=== PATIENT | female | born 1995 | race Two or more races ===

== ENCOUNTER 2018-02-20 12:26 | Outpatient (CLI) | payer OTHER | END 2018-02-20 15:40 | disposition home or self-care (01) | LOC: OBT 12:26 → L-D 12:27 → OBT 15:40 | DX: O62.9 Abnormality of forces of labor, unspecified (principal); Z3A.38 38 weeks gestation of pregnancy | CPT/HCPCS: 76815; 76818 ==

== ENCOUNTER 2018-03-05 17:28 | Inpatient (IN) | payer OTHER ==
[2018-03-05] MEDS ORDERED: LACTATED RINGER'S 1,000 ML IV (21:38)
[2018-03-05] MEDS ORDERED: BUTORPHANOL 1 MG INJ IV (22:00)
[2018-03-05] MEDS ORDERED: MISOPROSTOL 200 MCG TAB PR (22:00)
[2018-03-05] MEDS ORDERED: BUTORPHANOL 2 MG INJ IV (22:00)
[2018-03-05] MEDS ORDERED: METHYLERGONOVINE 0.2 MG INJ IM (22:00)
[2018-03-05] MEDS ORDERED: CARBOPROST 250 MCG INJ IM (22:00)
[2018-03-05] MEDS ORDERED: OXYTOCIN 30 UNITS/LR 500 ML IV (22:00)
[2018-03-05] MEDS: LACTATED RINGER'S 1,000 ML IV (22:30)
[2018-03-05] MEDS: AMPICILLIN 2 GM/NS (PMX) 100 ML IV (22:30)
[2018-03-05 22:32] LABS: ADD MAN DIFF? NO
[2018-03-05 22:39] LABS: WHITE BLOOD COUNT 7.8 10^3/ul (4.8-10.8)
[2018-03-05 22:39] LABS: BASOPHILS % 0.5 % (0.0-2.0); EOSINOPHILS # 0.1 10^3/ul (0.0-0.5); EOSINOPHILS % 0.8 % (0.0-7.0); HEMATOCRIT 41.5 % (37.0-47.0); HEMOGLOBIN 14.3 g/dl (12.0-16.0); LYMPHOCYTES # 2.1 10^3/ul (0.8-2.9); LYMPHOCYTES % 26.5 % (15.0-51.0); MEAN CORPUSCULAR HGB CONC 34.5 g/dl (32.0-37.0); MEAN CORPUSCULAR VOLUME 89.8 fl (82.0-101.0); MEAN PLATELET VOLUME 10.8 fl (7.4-10.4); MONOCYTE # 0.5 10^3/ul (0.3-0.9); MONOCYTES % 6.8 % (0.0-11.0); NEUTROPHIL # 4.9 10^3/ul (1.6-7.5); NEUTROPHILS % 63.7 % (39.0-77.0); PLATELET COUNT 151 10^3/UL (140-415); RED BLOOD COUNT 4.62 10^6/ul (4.20-5.40); RED CELL DISTRIBUTION WIDTH 13.2 % (11.5-14.5)
[2018-03-05 22:59] LABS: INR 0.93; PROTIME 12.5 Sec (11.9-14.9)
[2018-03-05 23:00] LABS: PARTIAL THROMBOPLASTIN TIME 24.6 Sec (25.0-35.0)
[2018-03-05 23:28] LABS: HEPATITIS B SURFACE ANTIGEN NEGATIVE (NEGATIVE)
[2018-03-06] MEDS: AMPICILLIN 1 GM/NS (PMX) 50 ML IV ×6 (02:23→22:00)
[2018-03-06] MEDS: LACTATED RINGER'S 1,000 ML IV ×5 (07:52→18:20)
[2018-03-06] MEDS ORDERED: MISOPROSTOL 100 MCG TAB PO (08:00)
[2018-03-06] MEDS: ONDANSETRON 4 MG INJ IV ×2 (08:11→15:45)
[2018-03-06] MEDS ORDERED: MISOPROSTOL 25 MCG CAPSULE PO (09:00)
[2018-03-06] MEDS: MISOPROSTOL 25 MCG CAPSULE PO ×3 (09:21→16:00)
[2018-03-06] MEDS ORDERED: FENTAnyl 2MCG/ML-ROPIV 0.2% 100 ML (14:53)
[2018-03-06] MEDS: OXYTOCIN 30 UNITS/LR 500 ML IV ×3 (15:58→21:19)
[2018-03-06] MEDS ORDERED: NALOXONE (0.4 MG/ML) INJ IV (16:00)
[2018-03-06] MEDS ORDERED: DIPHENHYDRAMINE 50 MG INJ IV (16:00)
[2018-03-06] MEDS ORDERED: FENTAnyl 2MCG/ML-ROPIV 0.2% 100 ML BAG EPI (16:00)
[2018-03-06] MEDS: MEPERIDINE 50 MG INJ IM (19:30)
[2018-03-06] MEDS: MINERAL OIL LIGHT 10 ML VIAL TOP (21:00)
[2018-03-06] MEDS: LIDOCAINE 1% (MPF) 30 ML INJ INJ (21:17)
[2018-03-06] MEDS: IBUPROFEN 600 MG TAB PO (21:23)
[2018-03-06 21:58] LABS: RAPID PLASMA REAGIN NONREACTIVE (NR)
[2018-03-06] MEDS ORDERED: ACETAMINOPHEN 325 MG TAB PO ×2 (23:30)
[2018-03-06] MEDS ORDERED: ONDANSETRON 4 MG INJ IV (23:30)
[2018-03-06] MEDS ORDERED: DIBUCAINE 1% 30 GM OINT PR (23:30)
[2018-03-06] MEDS ORDERED: MAGNESIUM HYDROXIDE 30ML CUP PO (23:30)
[2018-03-06] MEDS ORDERED: CARBOPROST 250 MCG INJ IM (23:30)
[2018-03-06] MEDS ORDERED: ZOLPIDEM 5 MG TAB PO (23:30)
[2018-03-06] MEDS ORDERED: OXYTOCIN 30 UNITS/LR 500 ML IV (23:30)
[2018-03-06] MEDS ORDERED: NA PHOSPHATE/BIPHOS 133 ML ENEMA PR (23:30)
[2018-03-06] MEDS ORDERED: METHYLERGONOVINE 0.2 MG INJ IM (23:30)
[2018-03-06] MEDS ORDERED: MISOPROSTOL 200 MCG TAB PR (23:30)
[2018-03-06] MEDS ORDERED: DIPHENHYDRAMINE 25 MG CAP PO (23:30)
[2018-03-06] MEDS ORDERED: METHYLERGONOVINE 0.2 MG TAB PO (23:30)
[2018-03-07] MEDS: HYDROCODONE/APAP (5/325) TAB PO ×5 (01:18→23:29)
[2018-03-07] MEDS: OXYTOCIN 30 UNITS/LR 500 ML IV (01:27)
[2018-03-07] MEDS: WITCH HAZEL/GLYCERIN PAD PR ×2 (04:42→20:47)
[2018-03-07] MEDS: LANOLIN 7 GM TUBE TOP (04:42)
[2018-03-07] MEDS: BENZOCAINE 20% 56 ML SPRAY TOP ×2 (04:42→20:48)
[2018-03-07] MEDS: IBUPROFEN 600 MG TAB PO ×4 (05:34→18:15)
[2018-03-07] MEDS: SENNA/DOCUSATE NA (8.6MG/50MG) TAB PO ×2 (08:15→20:47)
[2018-03-07 09:01] LABS: ADD MAN DIFF? NO
[2018-03-07 09:06] LABS: WHITE BLOOD COUNT 10.6 10^3/ul (4.8-10.8)
[2018-03-07 09:06] LABS: BASOPHILS % 0.3 % (0.0-2.0); EOSINOPHILS # 0.1 10^3/ul (0.0-0.5); EOSINOPHILS % 0.7 % (0.0-7.0); HEMATOCRIT 39.9 % (37.0-47.0); HEMOGLOBIN 13.5 g/dl (12.0-16.0); LYMPHOCYTES # 2.6 10^3/ul (0.8-2.9); MEAN CORPUSCULAR HEMOGLOBIN 31.1 pg (29.0-33.0); MEAN CORPUSCULAR HGB CONC 33.8 g/dl (32.0-37.0); MEAN CORPUSCULAR VOLUME 91.9 fl (82.0-101.0); MEAN PLATELET VOLUME 10.9 fl (7.4-10.4); MONOCYTE # 0.6 10^3/ul (0.3-0.9); NEUTROPHIL # 7.1 10^3/ul (1.6-7.5); NEUTROPHILS % 67.1 % (39.0-77.0); PLATELET COUNT 122 10^3/UL (140-415); RED BLOOD COUNT 4.34 10^6/ul (4.20-5.40); RED CELL DISTRIBUTION WIDTH 13.2 % (11.5-14.5)
[2018-03-07] MEDS: LACTATED RINGER'S 1,000 ML IV* (16:06)
[2018-03-07] MEDS: BISACODYL 10 MG SUPP PR (20:47)
[2018-03-07] MEDS: MAGNESIUM HYDROXIDE 30ML CUP PO (20:47)
[2018-03-08] MEDS: IBUPROFEN 600 MG TAB PO ×4 (00:25→18:32)
[2018-03-08] MEDS: HYDROCODONE/APAP (5/325) TAB PO ×2 (03:44→12:26)
[2018-03-08] MEDS: SENNA/DOCUSATE NA (8.6MG/50MG) TAB PO ×2 (09:00→19:10)
[2018-03-08] MEDS: WITCH HAZEL/GLYCERIN PAD PR (18:34)
[2018-03-08] MEDS: BENZOCAINE 20% 56 ML SPRAY TOP (18:34)
== END 2018-03-08 20:30 | disposition home or self-care (01) | DRG 775 ==
LOC: OBT 17:28 → PP1 03-06 23:36 → L-D 17:28 → OBT 21:30 → L-D 21:30
PROVIDERS: Obstetrics & Gynecology
PROC: 10E0XZZ Delivery of Products of Conception, External Approach (ICD-10-PCS; principal; 2018-03-06)
PROC: 0KQM0ZZ Repair Perineum Muscle, Open Approach (ICD-10-PCS; 2018-03-06)
PROC: 3E033VJ Introduction of Other Hormone into Peripheral Vein, Percutaneous Approach (ICD-10-PCS; 2018-03-06)
DX: O48.0 Post-term pregnancy (principal); Z3A.40 40 weeks gestation of pregnancy; O70.1 Second degree perineal laceration during delivery; Z37.0 Single live birth
CPT/HCPCS: 62319; 76815; 76818; 85025; 85610; 85730; 86592; 86850; 86900; 86901; 87340; 99464